=== PATIENT | male | born 1960 | race Caucasian/White ===

== ENCOUNTER 2017-01-26 07:11 | Day surgery (SDC) | payer BC ==
[2017-01-25 11:49] VITALS: BMI 30.2
[2017-01-26] VITALS (15 sets, daily range): BP systolic 113–129; BP diastolic 74–91; PULSE 76–80; RESP 12–19; Ht 165.1 cm; Wt 94.0 kg
[~2017-01-26] VITALS: Ht 165.1 cm; Wt 94.0 kg
[~2017-01-26 07:11] MED LIST: CEFAZOLIN 1 GM INJ ONE; CEFAZOLIN 2 GM/50 ML (PMX) 50 ML IVPB ONE; LACTATED RINGER'S 1,000 ML IV* SCH
[2017-01-26 08:04] LABS: ADD SCAN DIFF NO
[2017-01-26 08:10] LABS: BASOPHIL # 0.1 10^3/ul (0.0-0.1); EOSINOPHILS # 0.2 10^3/ul (0.0-0.5); EOSINOPHILS % 3.6 % (0.0-7.0); HEMATOCRIT 45.6 % (42.0-52.0); HEMOGLOBIN 16.2 g/dl (14.0-18.0); LYMPHOCYTES # 2.4 10^3/ul (0.8-2.9); MEAN CORPUSCULAR HEMOGLOBIN 32.7 pg (29.0-33.0); MEAN CORPUSCULAR HGB CONC 35.5 g/dl (32.0-37.0); MEAN CORPUSCULAR VOLUME 91.9 fl (82.0-101.0); MEAN PLATELET VOLUME 9.5 fl (7.4-10.4); MONOCYTE # 0.6 10^3/ul (0.3-0.9); MONOCYTES % 10.9 % (0.0-11.0); NEUTROPHIL # 2.1 10^3/ul (1.6-7.5); NEUTROPHILS % 39.3 % (39.0-77.0); PLATELET COUNT 224 10^3/UL (140-415); RED BLOOD COUNT 4.96 10^6/ul (4.70-6.10); RED CELL DISTRIBUTION WIDTH 12.6 % (11.5-14.5); WHITE BLOOD COUNT 5.3 10^3/ul (4.8-10.8)
[2017-01-26 08:18] LABS: INR 0.96; PROTIME 12.8 Sec (12.2-14.2)
[2017-01-26 08:19] LABS: PARTIAL THROMBOPLASTIN TIME 33.1 Sec (25.0-35.0)
[2017-01-26 08:24] LABS: BILIRUBIN,INDIRECT 0.9 mg/dl (0-1.1); BILIRUBIN,TOTAL 0.9 mg/dl (0.2-1.3)
[2017-01-26 08:25] LABS: ALBUMIN/GLOBULIN RATIO 1.21; TOTAL PROTEIN 7.3 g/dl (6.1-8.1)
[2017-01-26 08:27] LABS: CALCIUM 8.8 mg/dl (8.4-10.2); CREATININE 0.86 mg/dl (0.61-1.24); POTASSIUM 4.1 mmol/L (3.5-5.1)
[2017-01-26] MEDS ORDERED: FENTAnyl 50 MCG/ML VIAL ONE (09:20)
[2017-01-26] MEDS ORDERED: PROPOFOL 20 ML ONE (09:20)
[2017-01-26] MEDS ORDERED: LIDOCAINE 2% (SDV) 5 ML INJ ONE (09:20)
[2017-01-26] MEDS ORDERED: LIDOCAINE 1% (MPF) 30 ML INJ ONE (09:35)
[2017-01-26] MEDS ORDERED: BUPIVACAINE 0.25%/EPI (SDV) 30 ML INJ ONE (09:36)
--- NOTE | 2017-01-26 09:47 | RADRPT ---
PROCEDURE: XR Chest. CLINICAL INDICATION: Preoperative for epidermal cyst. TECHNIQUE: Single frontal view. COMPARISON: None. FINDINGS: The lungs are clear. The heart size is normal. There is no pleural effusion. There is no pneumothorax. IMPRESSION: 1. Normal chest radiograph. RPTAT: QQ .Matheus Elaine MD, Date Time Electronically viewed and signed by .Mahteus Elaine MD, on 01/26/2017 09:46 .R/
[2017-01-26] MEDS ORDERED: MEPERIDINE 25 MG INJ IV PRN (10:30)
[2017-01-26] MEDS ORDERED: OXYCODONE/ACETAMINOPHEN (5/325) TAB PO PRN ×2 (10:30)
[2017-01-26] MEDS ORDERED: FENTAnyl 50 MCG/ML VIAL IV PRN ×3 (10:30)
[2017-01-26] MEDS ORDERED: ONDANSETRON 4 MG INJ IV PRN ×2 (10:30→15:01)
[2017-01-26] MEDS ORDERED: LABETALOL HCL 20MG INJ IV PRN (10:30)
[2017-01-26] MEDS ORDERED: LACTATED RINGER'S 1,000 ML IV SCH (15:01)
[2017-01-26] MEDS ORDERED: HYDROCODONE/APAP (5/325) TAB PO PRN ×2 (15:01)
--- NOTE | 2017-01-26 17:57 | OPR ---
DATE OF OPERATION: 01/26/2017 SURGEON: Kyle Livingston MD CLERICAL ADVISER: None. ANESTHESIA: General and local. ANESTHESIOLOGIST: Dr. Aguilera. PREOPERATIVE DIAGNOSIS: Subcutaneous lump, right upper arm POSTOPERATIVE DIAGNOSES: Subcutaneous lump, right upper arm. OPERATION PERFORMED: Excision of the tumor along with the overlying skin. INDICATION: This is a 56-year-old gentleman who came to my office complaining of some pain and tenderness in the right upper arm. He also mentioned that for many years he has had a lump or nodule under the skin, but recently it has become very tender. On physical examination there appeared to be a round, 2 x 2 subcentimeter nodule under the skin in the upper anterolateral aspect of the right arm, the etiology of that could not be obvious at that time, so discussed with the patient the alternatives of treatment, risks and benefits of operation , possible complications and I told the patient that we are going to make a longitudinal incision bigger than the size of the mass and he accepted that and signed a consent. We proceeded with procedure. PROCEDURE IN DETAIL: Patient brought to the operating room, placed on operating table in supine position. Anesthesia was induced by the anesthesiologist. Antibiotic was given IV. Time out was called. Patient identified. Site of operation was identified. The right upper arm was prepped with Betadine and draped in a sterile fashion. All through the operation, a mixture of 0.25% Marcaine with epinephrine, plus 1% Xylocaine without epinephrine was used for local hemostasis and analgesia postop. An elliptical skin incision was made going about 3 cm long and 1.5 cm wide, carried through subcutaneous tissue. Of course, before that, the area was injected was injected with an anesthetic agent. The lump that was attached skin on top of it was all excised and was sent for pathologic evaluation. Wound was irrigated. Local flap laterally and medially was developed to close the wound free of tension. Then, a closure was started in 2 layers; deep layer with 3-0 Vicryl. Several interrupted sutures were taken. The skin was closed with 4-0 Monocryl subcuticular closure. At the end, Dermabond was applied over the wound. Then Telfa, sponges and Kerlix wrap were applied. Patient tolerated the procedure well. The sponge and instrument counts were reported as correct x2. ESTIMATED BLOOD LOSS: Nil. SPECIMEN: Was sent for pathologic evaluation. Dictated By: KYLE LIVINGSTON MD PS/JOON Conf#: [id number] DID#: [id number] [id number]
--- NOTE | 2017-01-31 18:06 | RADRPT ---
Vent Rate: 71 bpm RR Interval: 0 msec CA Interval: 156 msec QRS Duration: 88 msec QT Interval: 378 msec QTC Interval: 410 msec P-R-T Bliss: 42 - -51 - 37 degrees Normal sinus rhythm with sinus arrhythmia Left axis deviation Abnormal ECG Electronically Signed By: Yuval Miranda [id number]
== END 2017-01-26 12:20 | disposition home or self-care (01) ==
LOC: SDS 07:11
DX: D18.01 Hemangioma of skin and subcutaneous tissue (principal)
CPT/HCPCS: 11404; 12031; 71010; 80053; 82962; 85025; 85610; 85730; 93005; J3010; 88307; J0690